=== PATIENT | female | born 1945 | race Caucasian/White ===

== ENCOUNTER 2019-12-23 15:20 | Emergency (ER) | payer MEDICARE, SELFPAY ==
[2019-12-23 15:30] VITALS: BP 114/89; PULSE 101; RESP 20; TEMP 36.8; O2SAT 97
--- NOTE | 2019-12-23 15:42 | ED.FEMALEGU ---
HPI - Female Genitourinary General Chief complaint: Urogenital-Female Stated complaint: Bladder infection Time Seen by Provider: 12/23/19 15:42 Source: patient and RN notes reviewed Mode of arrival: ambulatory Limitations: no limitations History of Present Illness HPI Narrative: 74-year-old female who presents to [facility] with complaints of urinary frequency and some pelvic discomfort since this morning. Patient states that she has some lower back pain but she just recently moved and thinks that might be why her back is causing her discomfort. Patient states that she has past history of kidney stones and questions if her symptoms are related to this. Patient states no real burning with urination, no nausea or vomiting or any known fevers chills or sweats. Patient states that she has taken some Tylenol for her discomfort. MD elicited complaint: pelvic pain Pertinent past history: other (kidney stones) Onset (ago): hour(s) (this morning) Location of symptoms: suprapubic Female Urogenital Radiation: Suprapubic Severity scale (1-10): 2 Quality of pain: dull Consistency: constant Vaginal discharge: none Vaginal bleeding: none Urinary symptoms: Frequency Exacerbating factors: none Relieving factors: none Associated symptoms: abdominal pain (suprapubic area) and back pain Treatment prior to arrival: acetaminophen Sexual activity: No Patient : No Possible : postmenopausal Related Data Home Medications Medication Instructions Recorded Confirmed alprazolam 0.25 mg PO BID PRN 12/23/19 12/23/19 amlodipine 5 mg PO DAILY 12/23/19 12/23/19 omeprazole 20 mg PO DAILY 12/23/19 12/23/19 Allergies Allergy/AdvReac Type Severity Reaction Status Date / Time acetaminophen [From Percocet] Allergy Itching Verified 12/23/19 15:37 oxycodone [From Percocet] Allergy Itching Verified 12/23/19 15:37 Sulfa (Sulfonamide Allergy Rash Verified 12/23/19 15:37 Antibiotics) Review of Systems Review of Systems: Narrative: CONSTITUTIONAL: Denies fever, chills, or sweats. EYES: Denies visual changes, redness, or discharge. ENT: Denies rhinorrhea, congestion, sore throat, or otalgia. CARDIOVASCULAR: Denies chest pain, palpitations, or edema. RESPIRATORY: Denies cough or dyspnea. GASTROINTESTINAL:suprapubic abdominal pain,no nausea, vomiting, or diarrhea. GENITOURINARY: Denies dysuria or visible hematuria.urinary frequency SKIN: Denies rash or itching. MUSCULOSKELETAL:positive lower back pain, no joint pain, or myalgia. NEUROLOGIC: Denies headache, numbness, or weakness. PSYCHIATRIC: Positive anxiety or depression. All systems reviewed & are unremarkable except as noted in HPI and below PMFSH Past Medical History Medical History (Updated 12/24/19 @ 14:49 by Marion Gallagher NP) Anxiety Lee's esophagus Gastritis Hypertension Kidney stone Peritonitis Pulmonary embolism Surgical History Surgical History (Updated 12/24/19 @ 14:48 by Marion Gallagher NP) H/O dilation and curettage H/O parathyroidectomy H/O: hysterectomy Status post surgical removal of malignant neoplasm of skin Social History Social History (Updated 12/24/19 @ 14:47 by Marion Gallagher NP) Smoking packs per day: 0.5 Smoking cigarettes per day: 10.0 Years smoked: 20 Smoking pack-years: 10.00 Smoking status: Current every day smoker Alcohol intake: unknown Substance use: never Living arrangements: alone Occupation/Education: retired Gender identity (if verbalized by the patient): Female Comments At time of signature, agree with nursing past medical, surgical, social history. There is no relevant family history pertinent to the presenting complaint Exam Narrative: Exam Narrative: GENERAL: Well-appearing, well-nourished, and in no acute distress. HEAD: Normocephalic, atraumatic. EYES: PERRLA and EOMI. ENT: Nares clear, no rhinorrhea or epistaxis. Mucous membranes moist. NECK: Supple.no lymphadenopathy CHEST: Clear t
== END 2019-12-23 16:20 | disposition home or self-care (01) ==
PROVIDERS: Emergency Provider Registered Nurse
DX: N30.90 Cystitis, unspecified without hematuria (principal); F17.210 Nicotine dependence, cigarettes, uncomplicated; K22.70 Barrett's esophagus without dysplasia; I10 Essential (primary) hypertension; Z86.711 Personal history of pulmonary embolism; F41.9 Anxiety disorder, unspecified
CPT/HCPCS: 81003; 87086; 87088; 99213; G0463